=== PATIENT | female | born 1975 | race Two or more races ===

== ENCOUNTER → 2018-12-23 | Outpatient (CLI) | payer OTHER ==
[~2018-12-23] MED LIST: IOPAMIDOL (ISOVUE 370) 100 ML BTL IV ONE
== END ==
LOC: CIMAGING 11:25
PROVIDERS: ATTEND Family Medicine
DX: R00.2 Palpitations (principal); R55 Syncope and collapse; R53.83 Other fatigue; R06.89 Other abnormalities of breathing
CPT/HCPCS: 71275-PO; Q9967